=== PATIENT | female | born 1985 | race American Indian/Alaskan Native ===

== ENCOUNTER 2017-06-29 11:27 | Emergency (ER) | payer OTHER ==
[2017-06-29 11:43] VITALS: BP 100/73
[2017-06-29 12:31] LABS: Hematocrit 45.5 % (30.3-42.9); Hemoglobin 14.3 gm/dl (10.1-14.3); Mean Corpuscular HGB Conc 31 % (30-34); Mean Corpuscular Volume 77 fl (79-97); Platelet Count 341 K/mm3 (140-440); Red Blood Count 5.95 M/mm3 (3.65-5.03); Red Cell Distribution Width 15.3 % (13.2-15.2); White Blood Count 5.5 K/mm3 (4.5-11.0)
[2017-06-29 12:34] LABS: Anion Gap 22 mmol/L; BUN/Creatinine Ratio 16; Blood Urea Nitrogen 16 mg/dL (7-17); Calcium 9.7 mg/dL (8.4-10.2); Carbon Dioxide 22 mmol/L (22-30); Chloride 96.3 mmol/L (98-107); Glucose 99 mg/dL (65-100); Potassium 4.5 mmol/L (3.6-5.0); Sodium 136 mmol/L (137-145)
[2017-06-29 12:35] LABS: Mean Corpuscular Hemoglobin 24 pg (28-32)
[2017-06-29 13:06] LABS: Anisocytosis 1+; Basophils % (Manual) 0 % (0.0-1.8); Blastocytes % (Manual) 0 %; Diff Status Complete; Elliptocytes Few; Ovalocytes 1+; Poikilocytosis 1+; Target Cells Few; Tear Drop Cells Few
== END 2017-06-29 16:40 | disposition left against medical advice (07) ==
LOC: ED 11:27
DX: R07.9 Chest pain, unspecified (principal); Z53.21 Procedure and treatment not carried out due to patient leaving prior to being seen by health care provider
CPT/HCPCS: 36415; 80048; 84484; 85007; 85025; 93005; 93010